=== PATIENT | male | born 1960 | race Caucasian/White ===

== ENCOUNTER 2016-09-25 12:56 | Outpatient (CLI) | payer OTHER ==
--- NOTE | 2016-09-25 16:32 | DIAGNOSTIC IMAGING REPORT ---
PROCEDURE: MR CERVICAL SPINE W/O CONT INDICATION: Neck pain right arm weakness. Prior spine surgery (1979, 2004). TECHNIQUE: Noncontrast T1, T2, and STIR sagittal images. T2 and gradient axial images. High-resolution T2 coronal oblique images of bilateral neural foramina. COMPARISON: Comparison is made MRI cervical spine on 12/07/2013. FINDINGS: Spinal cord signal is normal. There are marked degenerative changes of the cervical spine associated chronic straightening of the cervical lordosis. C1-2: Mild to moderate degenerative change of C1 - odontoid articulation. C2-3: Mildly chronically bulging disc and facet disease. C3-4: Moderate right posterior lateral chronic disc herniation/osteophyte superimposed on a moderately chronically bulging disc and moderate facet disease. Overall, these changes result in moderate to severe narrowing the right neural foramen with mild narrowing of central canal and left neural foramen. No change. C4-5: Moderately to severely chronically bulging disc with lateral osteophytes and moderate facet disease. Overall, change result in severe narrowing the neural foramina with moderate to severe narrowing of central canal and mild flattening of the spinal cord. Findings suggest mild progression since prior study. C5-6: Moderately chronically bulging disc with lateral osteophytes (left greater right) and moderate facet disease. Overall, changes of moderate to severe narrowing of the left neural foramen with moderate narrowing of the right neural foramen. C6-7: Moderately chronically bulging disc with lateral osteophytes and facet disease. Overall, these changes result in moderate to severe narrowing of the right neural foramen with mild narrowing moderate narrowing of the left neural foramen. C7-T1: Moderately chronically bulging disc and facet disease results in moderate to severe narrowing of the right neural foramen with mild narrowing of central canal and left neural foramen. IMPRESSION: 1. Marked degenerative changes of the cervical spine. 2. Chronic straightening of the cervical lordosis compatible with degenerative changes spasm. 3. Moderate right posterior lateral chronic disc herniation at C3-4 superimposed on a moderately chronically bulging disc. Overall, these changes result in moderate to severe narrowing the right neural foramen. Consider right C4 radiculopathy. 4. Moderately to severely chronically bulging disc at C4-5 with severe narrowing of the neural foramina and moderate to severe narrowing of the central canal, and mild to moderate flattening of the spinal cord. Consider bilateral C5 radiculopathy or myelopathy. 5. Moderate chronically bulging disc at C5-6 with left posterior lateral osteophyte results in moderate to severe narrowing of the left neural foramen and moderate narrowing of the right neural foramen. Consider bilateral C6 radiculopathy (left greater than right). 6. Moderately chronically bulging disc at C6-7 with moderate to severe narrowing the right neural foramen and moderate narrowing the left neural foramen. Consider bilateral C7 radiculopathy (right greater than left). 7. Moderately chronically bulging disc at C7-T1 results in moderate to severe narrowing the right neural foramen. Consider right C8 radiculopathy.
== END 2016-09-25 23:00 ==
LOC: MRI SRH 12:56
DX: M50.23 Other cervical disc displacement, cervicothoracic region (principal); M50.21 Other cervical disc displacement, high cervical region; M50.221 Other cervical disc displacement at C4-C5 level; M50.222 Other cervical disc displacement at C5-C6 level; M50.223 Other cervical disc displacement at C6-C7 level; M47.812 Spondylosis without myelopathy or radiculopathy, cervical region